=== PATIENT | female | born 1940 | race Caucasian/White ===

== ENCOUNTER 2018-01-25 17:57 | Emergency (ER) | payer MEDICARE, BC ==
[~2018-01-25] VITALS: Ht 167.6 cm; Wt 107.0 kg
[2018-01-25] MEDS ORDERED: XARELTO10 MG (18:27)
[2018-01-25] MEDS ORDERED: Norco 5-325 Ta1 EACH PO (19:52)
== END 2018-01-25 20:26 | disposition home or self-care (01) ==
LOC: ER 17:57
DX: S02.32XA Fracture of orbital floor, left side, initial encounter for closed fracture (principal); S40.012A Contusion of left shoulder, initial encounter; S00.212A Abrasion of left eyelid and periocular area, initial encounter; W01.10XA Fall on same level from slipping, tripping and stumbling with subsequent striking against unspecified object, initial encounter; Z88.0 Allergy status to penicillin; Z88.8 Allergy status to other drugs, medicaments and biological substances; Z79.899 Other long term (current) drug therapy; I48.91 Unspecified atrial fibrillation
CPT/HCPCS: 70450; 72125; 73030; 73060; 93005; 93010; 99284